=== PATIENT | male | born 1955 | race Caucasian/White ===

== ENCOUNTER 2018-12-07 08:52 | Day surgery (SDC) | payer OTHER ==
[~2018-12-07 08:52] MED LIST: CLONAZEPAM2 MG PO; ISORBIDE PO; PLAVIX75 MG PO; TOPROL XL25 M1 PO; ZOCOR5 MG PO
== END 2018-12-07 15:00 | disposition home or self-care (01) ==
LOC: CIR.AMB 08:52
DX: M75.122 Complete rotator cuff tear or rupture of left shoulder, not specified as traumatic (principal); M75.02 Adhesive capsulitis of left shoulder; M75.42 Impingement syndrome of left shoulder